=== PATIENT | female | born 1945 | race Asian ===

== ENCOUNTER 2018-09-10 20:38 | Inpatient (IN) | payer MEDICARE ==
--- NOTE | 2018-09-10 21:06 | Emergency Department Report ---
HPI - General Time Seen by Provider: 09/10/18 20:47 - HPI HPI: Room 6 The patient is a 73-year-old female presenting with a chief complaint chest pain. History is obtained via translation by family member. Since 14:00 today the patient has had substernal chest pain described as a constant sharpness. Patient admits to shortness of breath and diaphoresis but denies nausea or vomiting. Patient is to call for past 3 days but states he's been nonproductive. Patient admits to subjective fever. Patient states she's never had a stress test or cardiac catheterization Location: Chest Duration: [See above] Quality: Sharp Severity: Currently 0/10 Modifying factors: [see above] Context: [see above] Mode of transportation: [not driving] ED Past Medical Hx - Past Medical History Hx Congestive Heart Failure: No - Surgical History Past Surgical History?: No - Family History Family history: no significant - Social History Smoking Status: Never Smoker Substance Use Type: None - Medications Home Medications: Home Medications Medication Instructions Recorded Confirmed Last Taken Type No Known Home Medications [No 01/17/13 01/17/13 Unknown History Reported Home Medications] ED Review of Systems ROS: Stated complaint: JUSTEN/CHEST PAIN Other details as noted in HPI Constitutional: diaphoresis, fever (subjective) Eyes: denies: eye pain ENT: denies: throat pain Respiratory: shortness of breath Cardiovascular: chest pain Endocrine: no symptoms reported Gastrointestinal: denies: nausea, vomiting Genitourinary: denies: dysuria Musculoskeletal: denies: back pain Neurological: denies: headache Physical Exam - Physical Exam Physical Exam: GENERAL: The patient is well-developed well-nourished female lying on stretcher not appearing to be in acute distress. [] HEENT: Normocephalic. Atraumatic. Extraocular motions are intact. Patient has moist mucous membranes. NECK: Supple. Trachea midline CHEST/LUNGS: Clear to auscultation. There is no respiratory distress noted. HEART/CARDIOVASCULAR: Regular. There is no tachycardia. There is no gallop rub or murmur. ABDOMEN: Abdomen is soft, nontender. Patient has normal bowel sounds. There is no abdominal distention. SKIN: There is no rash. There is no edema. There is no diaphoresis. NEURO: The patient is awake, alert, and oriented. The patient is cooperative. The patient has normal speech MUSCULOSKELETAL: There is no evidence of acute injury. ED Medical Decision Making - Lab Data Result diagrams: 09/10/18 21:09 09/10/18 21:09 Laboratory Tests 09/10/18 09/10/18 09/10/18 21:09 21:09 21:09 WBC 9.9 RBC 4.61 Hgb 11.7 Hct 34.6 MCV 75 L MCH 25 L MCHC 34 RDW 14.5 Plt Count 228 Seg Neutrophils % [employer] PT 12.2 INR 0.93 APTT 24.3 Sodium 135 L Potassium 3.8 Chloride 99.5 Carbon Dioxide 21 L Anion Gap 18 BUN 10 Creatinine 0.7 Estimated GFR > 60 BUN/Creatinine Ratio 14 Glucose 120 H Calcium 9.0 Total Creatine Kinase 34 Troponin T < 0.010 NT-Pro-B Natriuret Pep 289.7 - Radiology Data Radiology results: image reviewed (chest x-ray) interpreted by me: Chest x-ray-no focal infiltrates, no pneumothorax - Differential Diagnosis ACS, pneumonia, pericarditis, GERD Critical care attestation.: If time is entered above; I have spent that time in minutes in the direct care of this critically ill patient, excluding procedure time. ED Disposition Clinical Impression: Chest pain Disposition: DC-09 OP ADMIT IP TO THIS HOSP Is pt being admited?: Yes Does the pt Need Aspirin: Yes Condition: Fair Instructions: Chest Pain (ED) Time of Disposition: 21:46 (hospitalist paged (Dr Rothman))
[2018-09-10 21:23] LABS: Hematocrit 34.6 % (30.3-42.9); Hemoglobin 11.7 gm/dl (10.1-14.3); Mean Corpuscular HGB Conc 34 % (30-34); Mean Corpuscular Volume 75 fl (79-97); Platelet Count 228 K/mm3 (140-440); Red Blood Count 4.61 M/mm3 (3.65-5.03); Red Cell Distribution Width 14.5 % (13.2-15.2)
[2018-09-10 21:32] LABS: INR 0.93 (0.87-1.13); Partial Thromboplastin Time 24.3 Sec. (24.2-36.6)
[2018-09-10 21:42] LABS: BUN/Creatinine Ratio 14; Blood Urea Nitrogen 10 mg/dL (7-17); Hemolysis Index 17
[2018-09-10 21:46] LABS: Creatine Kinase MB < 1.0 ng/mL (0.0-4.0)
[2018-09-10] MEDS ORDERED: ASPIRIN PO ONE (21:48)
[2018-09-10 21:55] LABS: Basophils % (Manual) 0 % (0.0-1.8); Eosinophils % (Manual) 0 % (0.0-4.3); Total Cells Counted 100
[2018-09-10 21:56] LABS: Anisocytosis Few; Poikilocytosis Few; Target Cells Few
--- NOTE | 2018-09-10 22:15 | XRay Report ---
PROCEDURE: XR CHEST 1V AP TECHNIQUE: Chest radiograph single view. HISTORY: chest pain COMPARISONS: None . FINDINGS: Heart: Mild cardiomegaly. Mediastinum/Vessels: Normal. Lungs/Pleural space: Lungs are hyperinflated. There are no confluent infiltrates or mass lesions. Pl eural spaces are clear.. Bony thorax: No acute osseous abnormality. Life support devices: None. IMPRESSION: COPD No acute pulmonary process Mild cardiomegaly. This document is electronically signed by Mohinder Maldonado MD., September 10 2018 10:13:51 PM ET
[2018-09-10] MEDS ORDERED: ZOFRAN IV PRN (22:25)
[2018-09-10] MEDS ORDERED: MORPHINE IV PRN (22:25)
[2018-09-10] MEDS ORDERED: SODIUM CHLORIDE FLUSH SYRINGE 10 ML IV PRN (22:25)
[2018-09-10] MEDS ORDERED: TYLENOL PO PRN (22:25)
[2018-09-10] MEDS ORDERED: PERCOCET 5/325 PO PRN (22:25)
--- NOTE | 2018-09-10 22:56 | History and Physical Report ---
History of Present Illness Date of examination: 09/10/18 Date of admission: 09/10/18 22:25 Chief complaint: Chest pain History of present illness: Patient is a 73-year-old female with no known past medical history who presented to the ED on account of few hours history of left-sided chest pain which started about 2:30 PM. Of note, patient speaks little [place] so history was obtained from both the patient and the son who was at the bedside. She described it as sharp in character, rated 10 over 10, nonradiating and constant in duration. Pain is worse with deep breaths but no known relieving factors. She has associated palpitations, diaphoresis, fever with chills, dry cough, headaches and lightheadedness. She denies shortness of breath, leg swelling, orthopnea, PND, nausea, vomiting, syncope or loss of consciousness. No reported prior history of stress test. Past History Past Medical History: No medical history Past Surgical History: No surgical history Social history: no significant social history (she denies tobacco, alcohol or illicit drug use) Family history: other (no known family history of hypertension, diabetes or he art disease) Medications and Allergies Allergies Allergy/AdvReac Type Severity Reaction Status Date / Time No Known Allergies Allergy Unverified 01/17/13 17:48 Home Medications Medication Instructions Recorded Confirmed Last Taken Type No Known Home Medications [No 01/17/13 09/10/18 Unknown History Reported Home Medications] Active Meds: Active Medications Acetaminophen (Tylenol) 650 mg PO Q4H PRN PRN Reason: Pain MILD(1-3)/Fever >100.5/COSTA Aspirin (Baby Aspirin) 81 mg PO QDAY VALERIE Famotidine (Pepcid) 10 mg PO BID VALERIE Heparin Sodium (Porcine) (Heparin) 5,000 unit SUB-Q Q12HR [facility] Sodium Chloride (Nacl 0.9% 1000 Ml) 1,000 mls @ 100 mls/hr IV DIRECT VALERIE Morphine Sulfate (Morphine) 2 mg IV Q4H PRN PRN Reason: Pain , Severe (7-10) Ondansetron HCl (Zofran) 4 mg IV Q8H PRN PRN Reason: Nausea And Vomiting Oxycodone/Acetaminophen (Percocet 5/325) 1 tab PO Q6H PRN PRN Reason: Pain, Moderate (4-6) Sodium Chloride (Sodium Chloride Flush Syringe 10 Ml) 10 ml IV BID VALERIE Sodium Chloride (Sodium Chloride Flush Syringe 10 Ml) 10 ml IV PRN PRN PRN Reason: LINE FLUSH Review of Systems All systems: negative (except as documented in the HPI, 14 point system reviewed were negative) Exam - Constitutional Vitals: Temp Pulse Resp BP Pulse Ox 97.9 F 57 L 13 144/80 97 09/10/18 21:11 09/10/18 21:11 09/10/18 21:11 09/10/18 21:11 09/10/18 21:11 General appearance: Present: no acute distress - EENT Eyes: Present: PERRL, EOM intact ENT: hearing intact, clear oral mucosa - Neck Neck: Present: supple, normal ROM - Respiratory Respiratory effort: normal Respiratory: bilateral: CTA - Cardiovascular Rhythm: regular Heart Sounds: Present: S1 & S2. Absent: rub, click - Extremities Extremities: pulses symmetrical, No edema Peripheral Pulses: within normal limits - Abdominal General gastrointestinal: Present: soft, non-tender, non-distended, normal bowel sounds Female genitourinary: Present: deferred - Integumentary Integumentary: Present: clear, warm, dry - Musculoskeletal Musculoskeletal: gait normal, strength equal bilaterally - Psychiatric Psychiatric: appropriate mood/affect, intact judgment & insight - Neurologic Neurologic: CNII-XII intact, moves all extremities Results - Labs CBC & Chem 7: 09/10/18 21:09 09/10/18 21:09 Labs: Laboratory Last Values WBC 9.9 K/mm3 (4.5-11.0) 09/10/18 21: RBC 4.61 M/mm3 (3.65-5.03) 09/10/18 21:09 Hgb 11.7 gm/dl (10.1-14.3) 09/10/18 21: Hct 34.6 % (30.3-42.9) 09/10/18 21:09 MCV 75 fl (79-97) L 09/10/18 21:09 MCH 25 pg (28-32) L 09/10/18 21:09 MCHC 34 % (30-34) 09/10/18 21: RDW 14.5 % (13.2-15.2) 09/10/18 21:09 Plt Count 228 K/mm3 (140-440) 09/10/18 21:09 Add Manual Diff Complete 09/10/18 21:09 Total Counted 100 09/10/18 21:09 Seg Neutrophils % Remedy Developer 09/10/18 21:09 Seg Neuts % (Manual) 89.0 % (40.0-70.0) H 09/10/18 21:09 0 % 09/10/18 21:09 6.0 % (13.4-35.0) L 09/10/18 21:09 Reactive Lymphs % (Man) 0 % 09/10/18 21:09 5.0 % (0.0-7.3) 09/10/18 21:09 0 % (0.0-4.3) 09/10/18 21:09 0 % (0.0-1.8) 09/10/18 21:09 0 % 09/10/18 21:09 0 % 09/10/18 21:09 0 % 09/10/18 21:09 0 % 09/10/18 21:09 Nucleated RBC % Not Reportable 09/10/18 21:09 Seg Neutrophils # Man 8.8 K/mm3 (1.8-7.7) H 09/10/18 21:09 Band Neutrophils # 0.0 K/mm3 09/10/18 21:09 0.6 K/mm3 (1.2-5.4) L 09/10/18 21:09 Abs React Lymphs (Man) 0.0 K/mm3 09/10/18 21:09 0.5 K/mm3 (0.0-0.8) 09/10/18 21:09 0.0 K/mm3 (0.0-0.4) 09/10/18 21:09 0.0 K/mm3 (0.0-0.1) 09/10/18 21:09 0.0 K/mm3 09/10/18 21:09 0.0 K/mm3 09/10/18 21:09 0.0 K/mm3 09/10/18 21:09 Blast Cells # 0.0 K/mm3 09/10/18 21:09 WBC Morphology Not Reportable 09/10/18 21:09 Hypersegmented Neuts Not Reportable 09/10/18 21:09 Hyposegmented Neuts Not Reportable 09/10/18 21:09 Hypogranular Neuts Not Reportable 09/10/18 21:09 Not Reportable 09/10/18 21:09 Not Reportable 09/10/18 21:09 Not Reportable 09/10/18 21:09 Not Reportable 09/10/18 21:09 Not Reportable 09/10/18 21:09 Not Reportable 09/10/18 21:09 Appears normal 09/10/18 21:09 Not Reportable 09/10/18 21:09 Plt Clumps, EDTA Not Reportable 09/10/18 21:09 Not Reportable 09/10/18 21:09 Not Reportable 09/10/18 21:09 Not Reportable 09/10/18 21:09 Plt Morphology Comment Not Reportable 09/10/18 21:09 RBC Morphology Not Reportable 09/10/18 21:09 Dimorphic RBCs Not Reportable 09/10/18 21:09 Not Reportable 09/10/18 21:09 Not Reportable 09/10/18 21:09 Few 09/10/18 21:09 Few 09/10/18 21:09 Not Reportable 09/10/18 21:09 Not Reportable 09/10/18 21:09 Not Reportable 09/10/18 21:09 Not Reportable 09/10/18 21:09 Not Reportable 09/10/18 21:09 Few 09/10/18 21:09 Not Reportable 09/10/18 21:09 Not Reportable 09/10/18 21:09 Not Reportable 09/10/18 21:09 Not Reportable 09/10/18 21:09 Not Reportable 09/10/18 21:09 Not Reportable 09/10/18 21:09 Not Reportable 09/10/18 21:09 Not Reportable 09/10/18 21:09 Few 09/10/18 21:09 Acanthocytes (Spur) Not Reportable 09/10/18 21:09 Rouleaux Not Reportable 09/10/18 21:09 Not Reportable 09/10/18 21:09 Not Reportable 09/10/18 21:09 Not Reportable 09/10/18 21:09 Not Reportable 09/10/18 21:09 Hem Pathologist Commnt No 09/10/18 21:09 PT 12.2 Sec. (12.2-14.9) 09/10/18 21:09 INR 0.93 (0.87-1.13) 09/10/18 21:09 APTT 24.3 Sec. (24.2-36.6) 09/10/18 21:09 Sodium 135 mmol/L (137-145) L 09/10/18 21:09 Potassium 3.8 mmol/L (3.6-5.0) 09/10/18 21:09 Chloride 99.5 mmol/L (98-107) 09/10/18 21:09 Carbon Dioxide 21 mmol/L (22-30) L 09/10/18 21:09 18 mmol/L 09/10/18 21:09 BUN 10 mg/dL (7-17) 09/10/18 21:09 0.7 mg/dL (0.7-1.2) 09/10/18 21:09 Estimated GFR > 60 ml/min 09/10/18 21:09 14 % 09/10/18 21:09 Glucose 120 mg/dL (65-100) H 09/10/18 21:09 Calcium 9.0 mg/dL (8.4-10.2) 09/10/18 21:09 34 units/L (30-135) 09/10/18 21:09 CK-MB (CK-2) < 1.0 ng/mL (0.0-4.0) 09/10/18 21:09 CK-MB (CK-2) Rel Index 2.9 (0-4) 09/10/18 21:09 < 0.010 ng/mL (0.00-0.029) 09/10/18 21:09 NT-Pro-B Natriuret Pep 289.7 pg/mL (0-900) 09/10/18 21:09 Assessment and Plan Assessment and plan: Chest pain, rule out ACS -On chest pain pathway -We will check d-dimer -Further evaluation with stress test in a.m. Sinus bradycardia -We'll check TSH and FT4 -gambling monitor Metabolic acidosis -On IV fluid, will monitor bicarbonate level DVT prophylaxis with heparin Disposition: Patient will be placed in observation status pending further evaluation and treatment Time spent: 35 minutes
[2018-09-10] MEDS ORDERED: PEPCID PO SCH (23:00)
[2018-09-10] MEDS ORDERED: NACL 0.9% 1000 ML 1,000 ML ONE (23:15)
[2018-09-10] MEDS: NACL 0.9% 1000 ML 1,000 ML IV SCH (23:17)
[2018-09-11] MEDS: PEPCID PO SCH ×3 (00:26→22:12)
[2018-09-11 06:44] LABS: BUN/Creatinine Ratio 15; Blood Urea Nitrogen 9 mg/dL (7-17); Calcium 8.6 mg/dL (8.4-10.2); Hemolysis Index 8; LDL Cholesterol,Direct 93 mg/dL (50-130)
[2018-09-11 07:10] LABS: Chol/HDL Ratio 3.35 %; HDL Cholesterol 42 mg/dL (40-59)
[2018-09-11] MEDS ORDERED: LEXISCAN IV ONE ×2 (08:09→08:16)
[2018-09-11] MEDS: HEPARIN SUB-Q SCH ×2 (12:03→22:12)
[2018-09-11] MEDS: BABY ASPIRIN PO SCH (12:06)
[2018-09-11] MEDS: SODIUM CHLORIDE FLUSH SYRINGE 10 ML IV SCH ×2 (12:07→22:13)
--- NOTE | 2018-09-11 16:19 | Progress Note ---
Assessment and Plan Assessment and plan: --Chest pain: Probably noncardiac chest pain Stress test negative for reversible ischemia Continue some abortive care, possible gastroesophageal reflux disease --GERD; causing chest pain next symptoms, Protonix --Elevated d-dimer's; the setting of chest pain, rule out PE CT angiogram of the chest, lower extremity venous Doppler if needed --Sinus bradycardia at the time of admission; now resolved Patient's heart rate ranges in 50s and 60s, no symptoms Patient will follow cardiology upon discharge, thyroid function tests normal range --Metabolic acidosis; corrected --DVT prophylaxis with heparin --Full Code Follow CTA chest, lower extremity venous Doppler, if negative And patient is stable .may be discharged home tomorrow Plan of care is reviewed with the patient and family through a Bilingual family member History Interval history: Patient seen and examined, medical records reviewed No chest pain or shortness of breath Stress test negative for reversible ischemia However d-dimer slightly elevated Evaluate for PE and DVT Vital signs noted Hospitalist Physical - Constitutional Vitals: Temp Pulse Resp BP Pulse Ox 98.6 F 73 16 141/79 96 09/11/18 04:00 09/11/18 04:00 09/11/18 04:00 09/11/18 09:38 09/11/18 04:00 General appearance: Present: no acute distress, cachectic - EENT Eyes: Present: PERRL, EOM intact - Neck Neck: Present: supple, normal ROM - Respiratory Respiratory effort: normal Respiratory: bilateral: diminished, negative: rales, rhonchi, wheezing - Cardiovascular Rhythm: regular Heart Sounds: Present: S1 & S2 - Extremities Extremities: no ischemia, No edema - Abdominal General gastrointestinal: soft, non-tender, non-distended, normal bowel sounds - Integumentary Integumentary: Present: clear, warm - Psychiatric Psychiatric: appropriate mood/affect, cooperative - Neurologic Neurologic: moves all extremities Results - Labs CBC & Chem 7: 09/10/18 21:09 09/11/18 05:20 Labs: Laboratory Last Values WBC 9.9 K/mm3 (4.5-11.0) 09/10/18 21:09 RBC 4.61 M/mm3 (3.65-5.03) 09/10/18 21:09 Hgb 11.7 gm/dl (10.1-14.3) 09/10/18 21:09 Hct 34.6 % (30.3-42.9) 09/10/18 21:09 MCV 75 fl (79-97) L 09/10/18 21:09 MCH 25 pg (28-32) L 09/10/18 21:09 MCHC 34 % (30-34) 09/10/18 21:09 RDW 14.5 % (13.2-15.2) 09/10/18 21:09 Plt Count 228 K/mm3 (140-440) 09/10/18 21:09 Add Manual Diff Complete 09/10/18 21: Total Counted 100 09/10/18 21:09 Seg Neutrophils % Condenser Winder 09/10/18 21: Seg Neuts % (Manual) 89.0 % (40.0-70.0) H 09/10/18 21:09 0 % 09/10/18 21:09 6.0 % (13.4-35.0) L 09/10/18 21:09 Reactive Lymphs % (Man) 0 % 09/10/18 21:09 5.0 % (0.0-7.3) 09/10/18 21:09 0 % (0.0-4.3) 09/10/18 21:09 0 % (0.0-1.8) 09/10/18 21:09 0 % 09/10/18 21:09 0 % 09/10/18 21:09 0 % 09/10/18 21:09 0 % 09/10/18 21:09 Nucleated RBC % Not Reportable 09/10/18 21:09 Seg Neutrophils # Man 8.8 K/mm3 (1.8-7.7) H 09/10/18 21:09 Band Neutrophils # 0.0 K/mm3 09/10/18 21:09 0.6 K/mm3 (1.2-5.4) L 09/10/18 21:09 Abs React Lymphs (Man) 0.0 K/mm3 09/10/18 21:09 0.5 K/mm3 (0.0-0.8) 09/10/18 21:09 0.0 K/mm3 (0.0-0.4) 09/10/18 21:09 0.0 K/mm3 (0.0-0.1) 09/10/18 21:09 0.0 K/mm3 09/10/18 21:09 0.0 K/mm3 09/10/18 21:09 0.0 K/mm3 09/10/18 21:09 Blast Cells # 0.0 K/mm3 09/10/18 21:09 WBC Morphology Not Reportable 09/10/18 21:09 Hypersegmented Neuts Not Reportable 09/10/18 21:09 Hyposegmented Neuts Not Reportable 09/10/18 21:09 Hypogranular Neuts Not Reportable 09/10/18 21:09 Not Reportable 09/10/18 21:09 Not Reportable 09/10/18 21:09 Not Reportable 09/10/18 21:09 Not Reportable 09/10/18 21:09 Not Reportable 09/10/18 21:09 Not Reportable 09/10/18 21:09 Appears normal 09/10/18 21:09 Not Reportable 09/10/18 21:09 Plt Clumps, EDTA Not Reportable 09/10/18 21:09 Not Reportable 09/10/18 21:09 Not Reportable 09/10/18 21:09 Not Reportable 09/10/18 21:09 Plt Morphology Comment Not Reportable 09/10/18 21:09 RBC Morphology Not Reportable 09/10/18 21:09 Dimorphic RBCs Not Reportable 09/10/18 21:09 Not Reportable 09/10/18 21:09 Not Reportable 09/10/18 21:09 Few 09/10/18 21:09 Few 09/10/18 21:09 Not Reportable 09/10/18 21:09 Not Reportable 09/10/18 21:09 Not Reportable 09/10/18 21:09 Not Reportable 09/10/18 21:09 Not Reportable 09/10/18 21:09 Few 09/10/18 21:09 Not Reportable 09/10/18 21:09 Not Reportable 09/10/18 21:09 Not Reportable 09/10/18 21:09 Not Reportable 09/10/18 21:09 Not Reportable 09/10/18 21:09 Not Reportable 09/10/18 21:09 Not Reportable 09/10/18 21:09 Not Reportable 09/10/18 21:09 Few 09/10/18 21:09 Acanthocytes (Spur) Not Reportable 09/10/18 21:09 Rouleaux Not Reportable 09/10/18 21:09 Not Reportable 09/10/18 21:09 Not Reportable 09/10/18 21:09 Not Reportable 09/10/18 21:09 Not Reportable 09/10/18 21:09 Hem Pathologist Commnt No 09/10/18 21:09 PT 12.2 Sec. (12.2-14.9) 09/10/18 21:09 INR 0.93 (0.87-1.13) 09/10/18 21:09 APTT 24.3 Sec. (24.2-36.6) 09/10/18 21:09 296.99 ng/mlDDU (0-234) H 09/10/18 23:03 Sodium 137 mmol/L (137-145) 09/11/18 05:20 Potassium 4.0 mmol/L (3.6-5.0) 09/11/18 05:20 Chloride 101.6 mmol/L (98-107) 09/11/18 05:20 Carbon Dioxide 22 mmol/L (22-30) 09/11/18 05:20 17 mmol/L 09/11/18 05:20 BUN 9 mg/dL (7-17) 09/11/18 05:20 0.6 mg/dL (0.7-1.2) L 09/11/18 05:20 Estimated GFR > 60 ml/min 09/11/18 05:20 15 % 09/11/18 05:20 Glucose 94 mg/dL (65-100) 09/11/18 05:20 Calcium 8.6 mg/dL (8.4-10.2) 09/11/18 05:20 Magnesium 2.00 mg/dL (1.7-2.3) 09/11/18 05:20 34 units/L (30-135) 09/10/18 21:09 CK-MB (CK-2) < 1.0 ng/mL (0.0-4.0) 09/10/18 21:09 CK-MB (CK-2) Rel Index 2.9 (0-4) 09/10/18 21:09 < 0.010 ng/mL (0.00-0.029) 09/11/18 05:20 NT-Pro-B Natriuret Pep 289.7 pg/mL (0-900) 09/10/18 21:09 Triglycerides 92 mg/dL (2-149) 09/11/18 05:20 Cholesterol 141 mg/dL (50-199) 09/11/18 05:20 93 mg/dL (50-130) 09/11/18 05:20 42 mg/dL (40-59) 09/11/18 05:20 3.35 % 09/11/18 05:20 TSH 0.387 mlU/mL (0.270-4.200) 09/11/18 05:20 Free T4 1.38 ng/dL (0.76-1.46) 09/11/18 05:20 Active Medications - Current Medications Current Medications: Generic Name Dose Route Start Last Admin Trade Name Freq PRN Reason Stop Dose Admin Acetaminophen 650 mg 09/10/18 22:25 Tylenol PO Q4H PRN Pain MILD(1-3)/Fever >100.5/COSTA Aspirin 81 mg 09/11/18 10:00 09/11/18 12:06 Baby Aspirin PO 81 mg QDAY VALERIE Administration Famotidine 10 mg 09/10/18 23:00 09/11/18 12:02 Pepcid PO 10 mg BID VALERIE Administration Guaifenesin 10 ml 09/10/18 23:33 Guaifenesin Dm Syrup PO Q4H PRN Cough Heparin Sodium (Porcine) 5,000 unit 09/11/18 10:00 09/11/18 12:03 Heparin SUB-Q 5,000 unit Q12HR VALERIE Administration Sodium Chloride 1,000 mls @ 100 mls/hr 09/10/18 23:00 09/10/18 23:17 Nacl 0.9% 1000 Ml IV 100 mls/hr DIRECT VALERIE Administration Morphine Sulfate 2 mg 09/10/18 22:25 Morphine IV Q4H PRN Pain , Severe (7-10) Ondansetron HCl 4 mg 09/10/18 22:25 Zofran IV Q8H PRN Nausea And Vomiting Oxycodone/Acetaminophen 1 tab 09/10/18 22:25 Percocet 5/325 PO Q6H PRN Pain, Moderate (4-6) Sodium Chloride 10 ml 09/11/18 10:00 09/11/18 12:07 Sodium Chloride Flush Syringe 10 Ml IV 10 ml BID VALERIE Administration Sodium Chloride 10 ml 09/10/18 22:25 Sodium Chloride Flush Syringe 10 Ml IV PRN PRN LINE FLUSH
[2018-09-11] MEDS: NACL 0.9% 1000 ML 1,000 ML IV SCH (17:39)
[2018-09-11] MEDS ORDERED: MELATONIN PO PRN (21:54)
--- NOTE | 2018-09-11 22:41 | Treadmill Report ---
INDICATION: Chest pain. ORDERING PHYSICIAN: Dr. Welsh FINDINGS: This is a fair quality myocardial perfusion scan limited by motion artifact as well as by the patient having her bilateral arm by her side during stress imaging. There is no definite evidence of scintigraphic ischemia. The left ventricle is normal in size. The left ventricular ejection fraction is measured at 80%. There is normal wall motion and wall thickening on gated imaging. CONCLUSION: 1. Fair quality myocardial perfusion scan. 2. No scintigraphic evidence of myocardial ischemia. 3. Normal left ventricular size and systolic function with an ejection fraction measured at 80%. JOB# [id number] ELENA/EVARISTO
--- NOTE | 2018-09-12 00:33 | Cat Scan Report ---
PROCEDURE: CT ANGIO CHEST TECHNIQUE: Computerized tomographic angiography of the chest was performed after the IV injection of iodinated nonionic contrast including image processing. The image data was postprocessed using 2-di mensional multiplanar reformatted (MPR) and 3-dimensional (MIP and/or volume rendered) techniques. Au tomated exposure control, adjustment of mA and/or kV according to patient size, or iterative reconstr uction dose optimization techniques were utilized. CT DOSE LENGTH PRODUCT: 617.3 mGycm HISTORY: chest pain/elevated d dimers/r/o PE COMPARISONS: None . FINDINGS: Heart and pericardium: The heart size is slightly pronounced. Thoracic aorta: There is an ascending aortic aneurysm measuring 4.9 cm. Moderate atherosclerosis of aorta is identified. The aorta is tortuous.. Pulmonary vasculature: There is no evidence of pulmonary arterial emboli. Lymph nodes: No enlarged thoracic lymph nodes. Lungs: Chronic obstructive pulmonary changes with mild fibrosis. Slight atelectasis both lower lungs .. Pleural space: No effusion, thickening, or pneumothorax. Musculoskeletal structures: No significant abnormality. Upper abdominal structures: No significant abnormality. IMPRESSION: There is no evidence of pulmonary arterial emboli. COPD with mild fibrosis is slight atelectasis bilateral lower lungs. There is an ascending aortic aneurysm measuring 4.9 cm. The aorta is tortuous. No dissection is seen. . This document is electronically signed by Hali Maguire DO., September 12 2018 12:31:18 AM ET
[2018-09-12] MEDS: NACL 0.9% 1000 ML 1,000 ML IV SCH (08:57)
--- NOTE | 2018-09-12 09:56 | Progress Note ---
Assessment and Plan Assessment and plan: --Ascending aortic aneurysm 4.9 cm ; on CT angiogram of the chest No dissection, tortuous aorta Discussed with electrician office , requested consult Patient may need to see CT surgeon for further evaluation and management Cardiology plans cardiac cath tomorrow, nothing by mouth midnight --Chest pain: Stress test negative for reversible ischemia Continue supportive care, --GERD;Pepcid --Elevated d-dimer's; the setting of chest pain, rule out PE CT angiogram of the chest; negative for PE, ascending aortic aneurysm 4.9 cm Cardiology consulted lower extremity venous Doppler negative for DVT --Sinus bradycardia at the time of admission; now resolved Patient's heart rate ranges in 50s and 60s, no symptoms Patient will follow cardiology upon discharge, thyroid function tests normal range --Metabolic acidosis; corrected --DVT prophylaxis with heparin --Full Code Follow cardiology evaluation and recommendations Plan of care is reviewed with Mauritian speaking Son Mr. Wilkerson History Interval history: Patient seen and examined medical records reviewed Patient feels better denies chest pain or shortness of breath Alert awake oriented, cachectic and malnourished CT angiogram of the chest findings negative for PE Ascending aortic aneurysm of 4.9 cm, without dissection, tortuous aorta Vital signs noted Hospitalist Physical - Constitutional Vitals: Temp Pulse Resp BP Pulse Ox 97.4 F L 54 L 16 146/89 98 09/12/18 05:01 09/12/18 05:01 09/12/18 05:01 09/12/18 05:01 09/12/18 05:01 General appearance: Present: no acute distress, cachectic, disheveled - EENT Eyes: Present: PERRL, EOM intact - Neck Neck: Present: supple, normal ROM - Respiratory Respiratory effort: normal Respiratory: bilateral: diminished, negative: rales, rhonchi, wheezing - Cardiovascular Rhythm: regular Heart Sounds: Present: S1 & S2 - Extremities Extremities: no ischemia, No edema - Abdominal General gastrointestinal: soft, non-tender, non-distended, normal bowel sounds - Integumentary Integumentary: Present: clear, warm - Psychiatric Psychiatric: appropriate mood/affect, cooperative - Neurologic Neurologic: CNII-XII intact, moves all extremities Results - Labs CBC & Chem 7: 09/13/18 07:38 09/13/18 07:38 Labs: Laboratory Last Values WBC 9.9 K/mm3 (4.5-11.0) 09/10/18 21:09 RBC 4.61 M/mm3 (3.65-5.03) 09/10/18 21:09 Hgb 11.7 gm/dl (10.1-14.3) 09/10/18 21:09 Hct 34.6 % (30.3-42.9) 09/10/18 21:09 MCV 75 fl (79-97) L 09/10/18 21:09 MCH 25 pg (28-32) L 09/10/18 21:09 MCHC 34 % (30-34) 09/10/18 21: RDW 14.5 % (13.2-15.2) 09/10/18 21: Plt Count 228 K/mm3 (140-440) 09/10/18 21:09 Add Manual Diff Complete 09/10/18 21: Total Counted 100 09/10/18 21: Seg Neutrophils % Senior Program Manager 09/10/18 21: Seg Neuts % (Manual) 89.0 % (40.0-70.0) H 09/10/18 21:09 0 % 09/10/18 21:09 6.0 % (13.4-35.0) L 09/10/18 21:09 Reactive Lymphs % (Man) 0 % 09/10/18 21:09 5.0 % (0.0-7.3) 09/10/18 21:09 0 % (0.0-4.3) 09/10/18 21:09 0 % (0.0-1.8) 09/10/18 21:09 0 % 09/10/18 21:09 0 % 09/10/18 21:09 0 % 09/10/18 21:09 0 % 09/10/18 21:09 Nucleated RBC % Not Reportable 09/10/18 21: Seg Neutrophils # Man 8.8 K/mm3 (1.8-7.7) H 09/10/18 21:09 Band Neutrophils # 0.0 K/mm3 09/10/18 21:09 0.6 K/mm3 (1.2-5.4) L 09/10/18 21:09 Abs React Lymphs (Man) 0.0 K/mm3 09/10/18 21:09 0.5 K/mm3 (0.0-0.8) 09/10/18 21:09 0.0 K/mm3 (0.0-0.4) 09/10/18 21:09 0.0 K/mm3 (0.0-0.1) 09/10/18 21:09 0.0 K/mm3 09/10/18 21:09 0.0 K/mm3 09/10/18 21:09 0.0 K/mm3 09/10/18 21:09 Blast Cells # 0.0 K/mm3 09/10/18 21:09 WBC Morphology Not Reportable 09/10/18 21:09 Hypersegmented Neuts Not Reportable 09/10/18 21:09 Hyposegmented Neuts Not Reportable 09/10/18 21:09 Hypogranular Neuts Not Reportable 09/10/18 21:09 Not Reportable 09/10/18 21:09 Not Reportable 09/10/18 21:09 Not Reportable 09/10/18 21:09 Not Reportable 09/10/18 21:09 Not Reportable 09/10/18 21:09 Not Reportable 09/10/18 21:09 Appears normal 09/10/18 21:09 Not Reportable 09/10/18 21:09 Plt Clumps, EDTA Not Reportable 09/10/18 21:09 Not Reportable 09/10/18 21:09 Not Reportable 09/10/18 21:09 Not Reportable 09/10/18 21:09 Plt Morphology Comment Not Reportable 09/10/18 21:09 RBC Morphology Not Reportable 09/10/18 21:09 Dimorphic RBCs Not Reportable 09/10/18 21:09 Not Reportable 09/10/18 21:09 Not Reportable 09/10/18 21:09 Few 09/10/18 21:09 Few 09/10/18 21:09 Not Reportable 09/10/18 21:09 Not Reportable 09/10/18 21:09 Not Reportable 09/10/18 21:09 Not Reportable 09/10/18 21:09 Not Reportable 09/10/18 21:09 Few 09/10/18 21:09 Not Reportable 09/10/18 21:09 Not Reportable 09/10/18 21:09 Not Reportable 09/10/18 21:09 Not Reportable 09/10/18 21:09 Not Reportable 09/10/18 21:09 Not Reportable 09/10/18 21:09 Not Reportable 09/10/18 21:09 Not Reportable 09/10/18 21:09 Few 09/10/18 21:09 Acanthocytes (Spur) Not Reportable 09/10/18 21:09 Rouleaux Not Reportable 09/10/18 21:09 Not Reportable 09/10/18 21:09 Not Reportable 09/10/18 21:09 Not Reportable 09/10/18 21:09 Not Reportable 09/10/18 21:09 Hem Pathologist Commnt No 09/10/18 21:09 PT 12.2 Sec. (12.2-14.9) 09/10/18 21:09 INR 0.93 (0.87-1.13) 09/10/18 21:09 APTT 24.3 Sec. (24.2-36.6) 09/10/18 21:09 296.99 ng/mlDDU (0-234) H 09/10/18 23:03 Sodium 137 mmol/L (137-145) 09/11/18 05:20 Potassium 4.0 mmol/L (3.6-5.0) 09/11/18 05:20 Chloride 101.6 mmol/L (98-107) 09/11/18 05:20 Carbon Dioxide 22 mmol/L (22-30) 09/11/18 05:20 17 mmol/L 09/11/18 05:20 BUN 9 mg/dL (7-17) 09/11/18 05:20 0.6 mg/dL (0.7-1.2) L 09/11/18 05:20 Estimated GFR > 60 ml/min 09/11/18 05:20 15 % 09/11/18 05:20 Glucose 94 mg/dL (65-100) 09/11/18 05:20 Calcium 8.6 mg/dL (8.4-10.2) 09/11/18 05:20 Magnesium 2.00 mg/dL (1.7-2.3) 09/11/18 05:20 34 units/L (30-135) 09/10/18 21:09 CK-MB (CK-2) < 1.0 ng/mL (0.0-4.0) 09/10/18 21:09 CK-MB (CK-2) Rel Index 2.9 (0-4) 09/10/18 21:09 < 0.010 ng/mL (0.00-0.029) 09/11/18 05:20 NT-Pro-B Natriuret Pep 289.7 pg/mL (0-900) 09/10/18 21:09 Triglycerides 92 mg/dL (2-149) 09/11/18 05:20 Cholesterol 141 mg/dL (50-199) 09/11/18 05:20 93 mg/dL (50-130) 09/11/18 05:20 42 mg/dL (40-59) 09/11/18 05:20 3.35 % 09/11/18 05:20 TSH 0.387 mlU/mL (0.270-4.200) 09/11/18 05:20 Free T4 1.38 ng/dL (0.76-1.46) 09/11/18 05:20 Active Medications - Current Medications Current Medications: Generic Name Dose Route Start Last Admin Trade Name Freq PRN Reason Stop Dose Admin Acetaminophen 650 mg 09/10/18 22:25 Tylenol PO Q4H PRN Pain MILD(1-3)/Fever >100.5/COSTA Aspirin 81 mg 09/11/18 10:00 09/11/18 12:06 Baby Aspirin PO 81 mg QDAY VALERIE Administration Famotidine 10 mg 09/10/18 23:00 09/11/18 22:12 Pepcid PO 10 mg BID VALERIE Administration Guaifenesin 10 ml 09/10/18 23:33 Guaifenesin Dm Syrup PO Q4H PRN Cough Heparin Sodium (Porcine) 5,000 unit 09/11/18 10:00 09/11/18 22:12 Heparin SUB-Q 5,000 unit Q12HR VALERIE Administration Sodium Chloride 1,000 mls @ 100 mls/hr 09/10/18 23:00 09/12/18 08:57 Nacl 0.9% 1000 Ml IV 100 mls/hr DIRECT VALERIE Administration Melatonin 5 mg 09/11/18 21:54 09/11/18 22:14 Melatonin PO 5 mg QHS PRN Administration Sleep Morphine Sulfate 2 mg 09/10/18 22:25 Morphine IV Q4H PRN Pain , Severe (7-10) Ondansetron HCl 4 mg 09/10/18 22:25 Zofran IV Q8H PRN Nausea And Vomiting Oxycodone/Acetaminophen 1 tab 09/10/18 22:25 Percocet 5/325 PO Q6H PRN Pain, Moderate (4-6) Sodium Chloride 10 ml 09/11/18 10:00 09/11/18 22:13 Sodium Chloride Flush Syringe 10 Ml IV 10 ml BID VALERIE Administration Sodium Chloride 10 ml 09/10/18 22:25 Sodium Chloride Flush Syringe 10 Ml IV PRN PRN LINE FLUSH
[2018-09-12] MEDS: PEPCID PO SCH ×2 (10:06→22:10)
[2018-09-12] MEDS: BABY ASPIRIN PO SCH (10:06)
[2018-09-12] MEDS: SODIUM CHLORIDE FLUSH SYRINGE 10 ML IV SCH ×2 (10:08→22:11)
[2018-09-12] MEDS: HEPARIN SUB-Q SCH ×2 (10:11→22:10)
--- NOTE | 2018-09-12 10:53 | Event Note ---
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 Will forward CT films to him and arrange for a cardiac cath per his request prior to any surgical intervention Recommendations: Forward CT images to CTS at [place] tomorrow morning Arrange for cardiac cath in am Start amlodipine for blood pressure control Continue to monitor patient in-house Will continue to follow
[2018-09-12] MEDS ORDERED: NACL 0.9% 500 ML 500 ML IV SCH (12:00)
[2018-09-12] MEDS: NORVASC PO SCH (12:05)
--- NOTE | 2018-09-12 13:06 | Vascular Lab Report ---
PROCEDURE: VL VENOUS DUPLEX LE BILAT HISTORY: elevated d dimers/r/o DVT FINDINGS: Real-time ultrasound of the right leg and left leg was performed using grayscale and color Doppler images. These images demonstrate no evidence of deep venous thrombus in the right or left common femoral vein , superficial femoral vein, popliteal vein or posterior tibial vein. IMPRESSION: No DVT in either leg This document is electronically signed by Bahman Ch MD., September 12 2018 01:04:24 PM ET
[2018-09-12 17:00] LABS: INR 0.96 (0.87-1.13)
[2018-09-13 08:15] LABS: Basophils % (Auto) 0.2 % (0.0-1.8); Eosinophils % (Auto) 0.5 % (0.0-4.3); Hematocrit 36.9 % (30.3-42.9); Hemoglobin 12.1 gm/dl (10.1-14.3); Lymphocytes # (Auto) 1.6 K/mm3 (1.2-5.4); Lymphocytes % (Auto) 28.6 % (13.4-35.0); Mean Corpuscular HGB Conc 33 % (30-34); Mean Corpuscular Volume 76 fl (79-97); Monocytes # (Auto) 0.3 K/mm3 (0.0-0.8); Monocytes % (Auto) 6.1 % (0.0-7.3); Platelet Count 225 K/mm3 (140-440); Red Blood Count 4.88 M/mm3 (3.65-5.03); Red Cell Distribution Width 14.8 % (13.2-15.2)
--- NOTE | 2018-09-13 08:21 | Progress Note ---
Assessment and Plan Assessment and plan: --Cardiac cath today per Cardiology --Ascending aortic aneurysm 4.9 cm ; on CT angiogram of the chest No dissection, tortuous aorta Evaluated by budget clerk ,who d/w CT surgeon [place] Patient to be transferred to see CT surgeon for further evaluation and management Cardiology plans cardiac cath today, nothing by mouth midnight --Chest pain: Stress test negative for reversible ischemia normal EF% --GERD;Pepcid --Elevated d-dimer's; the setting of chest pain, rule out PE CTA chest; negative for PE, ascending aortic aneurysm 4.9 cm lower extremity venous Doppler negative for DVT --Sinus bradycardia at the time of admission; now resolved Patient's heart rate ranges in 50s and 60s, no symptoms No beta blockers, thyroid function tests normal range --Metabolic acidosis; corrected --DVT prophylaxis with heparin --Full Code History Interval history: Patient Seen and examined medical records reviewed Patient is scheduled for left heart catheterization today Patient looks chronically and cachectic Denies chest pain or shortness of breath Vital signs noted Family member at the bedside Hospitalist Physical - Constitutional Vitals: Temp Pulse Resp BP Pulse Ox 98.3 F 63 20 145/87 90 09/13/18 04:26 09/13/18 07:13 09/13/18 04:26 09/13/18 07:13 09/13/18 07:13 General appearance: Present: no acute distress, cachectic, disheveled - EENT Eyes: Present: PERRL, EOM intact - Neck Neck: Present: supple, normal ROM - Respiratory Respiratory effort: normal Respiratory: bilateral: diminished, negative: rales, rhonchi, wheezing - Cardiovascular Rhythm: regular Heart Sounds: Present: S1 & S2 - Extremities Extremities: no ischemia, No edema - Abdominal General gastrointestinal: soft, non-tender, non-distended, normal bowel sounds - Integumentary Integumentary: Present: clear, warm - Psychiatric Psychiatric: appropriate mood/affect, other (minimally communicative) - Neurologic Neurologic: moves all extremities Results - Labs CBC & Chem 7: 09/13/18 07:38 09/13/18 07:38 Labs: Laboratory Last Values WBC 9.9 K/mm3 (4.5-11.0) 09/10/18 21:09 RBC 4.61 M/mm3 (3.65-5.03) 09/10/18 21:09 Hgb 11.7 gm/dl (10.1-14.3) 09/10/18 21:09 Hct 34.6 % (30.3-42.9) 09/10/18 21:09 MCV 75 fl (79-97) L 09/10/18 21:09 MCH 25 pg (28-32) L 09/10/18 21:09 MCHC 34 % (30-34) 09/10/18 21:09 RDW 14.5 % (13.2-15.2) 09/10/18 21:09 Plt Count 228 K/mm3 (140-440) 09/10/18 21:09 [place] % (Auto) 6.1 % (0.0-7.3) 09/13/18 07:38 Eos % (Auto) 0.5 % (0.0-4.3) 09/13/18 07:38 [place] # 0.3 K/mm3 (0.0-0.8) 09/13/18 07:38 Eos # 0.0 K/mm3 (0.0-0.4) 09/13/18 07:38 Baso # 0.0 K/mm3 (0.0-0.1) 09/13/18 07:38 Add Manual Diff Complete 09/10/18 21:09 Total Counted 100 09/10/18 21:09 Seg Neutrophils % 64.6 % (40.0-70.0) 09/13/18 07:38 Seg Neuts % (Manual) 89.0 % (40.0-70.0) H 09/10/18 21:09 0 % 09/10/18 21:09 6.0 % (13.4-35.0) L 09/10/18 21:09 Reactive Lymphs % (Man) 0 % 09/10/18 21:09 5.0 % (0.0-7.3) 09/10/18 21:09 0 % (0.0-4.3) 09/10/18 21:09 0 % (0.0-1.8) 09/10/18 21:09 0 % 09/10/18 21:09 0 % 09/10/18 21:09 0 % 09/10/18 21:09 0 % 09/10/18 21:09 Nucleated RBC % Not Reportable 09/10/18 21:09 Seg Neutrophils # 3.6 K/mm3 (1.8-7.7) 09/13/18 07:38 Seg Neutrophils # Man 8.8 K/mm3 (1.8-7.7) H 09/10/18 21:09 Band Neutrophils # 0.0 K/mm3 09/10/18 21:09 0.6 K/mm3 (1.2-5.4) L 09/10/18 21:09 Abs React Lymphs (Man) 0.0 K/mm3 09/10/18 21:09 0.5 K/mm3 (0.0-0.8) 09/10/18 21:09 0.0 K/mm3 (0.0-0.4) 09/10/18 21:09 0.0 K/mm3 (0.0-0.1) 09/10/18 21:09 0.0 K/mm3 09/10/18 21:09 0.0 K/mm3 09/10/18 21:09 0.0 K/mm3 09/10/18 21:09 Blast Cells # 0.0 K/mm3 09/10/18 21:09 WBC Morphology Not Reportable 09/10/18 21:09 Hypersegmented Neuts Not Reportable 09/10/18 21:09 Hyposegmented Neuts Not Reportable 09/10/18 21:09 Hypogranular Neuts Not Reportable 09/10/18 21:09 Not Reportable 09/10/18 21:09 Not Reportable 09/10/18 21:09 Not Reportable 09/10/18 21:09 Not Reportable 09/10/18 21:09 Not Reportable 09/10/18 21:09 Not Reportable 09/10/18 21:09 Appears normal 09/10/18 21:09 Not Reportable 09/10/18 21:09 Plt Clumps, EDTA Not Reportable 09/10/18 21:09 Not Reportable 09/10/18 21:09 Not Reportable 09/10/18 21:09 Not Reportable 09/10/18 21:09 Plt Morphology Comment Not Reportable 09/10/18 21:09 RBC Morphology Not Reportable 09/10/18 21:09 Dimorphic RBCs Not Reportable 09/10/18 21:09 Not Reportable 09/10/18 21:09 Not Reportable 09/10/18 21:09 Few 09/10/18 21:09 Few 09/10/18 21:09 Not Reportable 09/10/18 21:09 Not Reportable 09/10/18 21:09 Not Reportable 09/10/18 21:09 Not Reportable 09/10/18 21:09 Not Reportable 09/10/18 21:09 Few 09/10/18 21:09 Not Reportable 09/10/18 21:09 Not Reportable 09/10/18 21:09 Not Reportable 09/10/18 21:09 Not Reportable 09/10/18 21:09 Not Reportable 09/10/18 21:09 Not Reportable 09/10/18 21:09 Not Reportable 09/10/18 21:09 Not Reportable 09/10/18 21:09 Few 09/10/18 21:09 Acanthocytes (Spur) Not Reportable 09/10/18 21:09 Rouleaux Not Reportable 09/10/18 21:09 Not Reportable 09/10/18 21:09 Not Reportable 09/10/18 21:09 Not Reportable 09/10/18 21:09 Not Reportable 09/10/18 21:09 Hem Pathologist Commnt No 09/10/18 21:09 PT 12.5 Sec. (12.2-14.9) 09/12/18 15:37 INR 0.96 (0.87-1.13) 09/12/18 15:37 APTT 24.3 Sec. (24.2-36.6) 09/10/18 21:09 296.99 ng/mlDDU (0-234) H 09/10/18 23:03 Sodium 137 mmol/L (137-145) 09/11/18 05:20 Potassium 4.0 mmol/L (3.6-5.0) 09/11/18 05:20 Chloride 101.6 mmol/L (98-107) 09/11/18 05:20 Carbon Dioxide 22 mmol/L (22-30) 09/11/18 05:20 17 mmol/L 09/11/18 05:20 BUN 9 mg/dL (7-17) 09/11/18 05:20 0.6 mg/dL (0.7-1.2) L 09/11/18 05:20 Estimated GFR > 60 ml/min 09/11/18 05:20 15 % 09/11/18 05:20 Glucose 94 mg/dL (65-100) 09/11/18 05:20 POC Glucose 101 (70-105) 09/12/18 16:06 Calcium 8.6 mg/dL (8.4-10.2) 09/11/18 05:20 Magnesium 2.00 mg/dL (1.7-2.3) 09/11/18 05:20 34 units/L (30-135) 09/10/18 21:09 CK-MB (CK-2) < 1.0 ng/mL (0.0-4.0) 09/10/18 21:09 CK-MB (CK-2) Rel Index 2.9 (0-4) 09/10/18 21:09 < 0.010 ng/mL (0.00-0.029) 09/11/18 05:20 NT-Pro-B Natriuret Pep 289.7 pg/mL (0-900) 09/10/18 21:09 Triglycerides 92 mg/dL (2-149) 09/11/18 05:20 Cholesterol 141 mg/dL (50-199) 09/11/18 05:20 93 mg/dL (50-130) 09/11/18 05:20 42 mg/dL (40-59) 09/11/18 05:20 3.35 % 09/11/18 05:20 TSH 0.387 mlU/mL (0.270-4.200) 09/11/18 05:20 Free T4 1.38 ng/dL (0.76-1.46) 09/11/18 05:20 Active Medications - Current Medications Current Medications: Generic Name Dose Route Start Last Admin Trade Name Freq PRN Reason Stop Dose Admin Acetaminophen 650 mg 09/10/18 22:25 Tylenol PO Q4H PRN Pain MILD(1-3)/Fever >100.5/COSTA Amlodipine Besylate 5 mg 09/12/18 11:00 09/12/18 12:05 Norvasc PO 5 mg QDAY VALERIE Administration Aspirin 81 mg 09/11/18 10:00 09/12/18 10:06 Baby Aspirin PO 81 mg QDAY VALERIE Administration Famotidine 10 mg 09/10/18 23:00 09/12/18 22:10 Pepcid PO 10 mg BID VALERIE Administration Guaifenesin 10 ml 09/10/18 23:33 Guaifenesin Dm Syrup PO Q4H PRN Cough Heparin Sodium (Porcine) 5,000 unit 09/11/18 10:00 09/12/18 22:10 Heparin SUB-Q 5,000 unit Q12HR VALERIE Administration Sodium Chloride 1,000 mls @ 100 mls/hr 09/10/18 23:00 09/12/18 08:57 Nacl 0.9% 1000 Ml IV 100 mls/hr DIRECT VALERIE Administration Melatonin 5 mg 09/11/18 21:54 09/11/18 22:14 Melatonin PO 5 mg QHS PRN Administration Sleep Morphine Sulfate 2 mg 09/10/18 22:25 09/12/18 18:17 Morphine IV 2 mg Q4H PRN Administration Pain , Severe (7-10) Ondansetron HCl 4 mg 09/10/18 22:25 Zofran IV Q8H PRN Nausea And Vomiting Oxycodone/Acetaminophen 1 tab 09/10/18 22:25 Percocet 5/325 PO Q6H PRN Pain, Moderate (4-6) Sodium Chloride 10 ml 09/11/18 10:00 09/12/18 22:11 Sodium Chloride Flush Syringe 10 Ml IV 10 ml BID VALERIE Administration Sodium Chloride 10 ml 09/10/18 22:25 Sodium Chloride Flush Syringe 10 Ml IV PRN PRN LINE FLUSH
[2018-09-13 08:42] LABS: Alanine Aminotransferase 10 units/L (7-56); Albumin 3.7 g/dL (3.9-5); BUN/Creatinine Ratio 13; Blood Urea Nitrogen 9 mg/dL (7-17); Calcium 8.5 mg/dL (8.4-10.2); Hemolysis Index 21
[2018-09-13] MEDS ORDERED: NACL 0.9% 500 ML 500 ML ONE (10:24)
[2018-09-13] MEDS ORDERED: SUBLIMAZE ONE (10:30)
[2018-09-13] MEDS ORDERED: VERSED ONE (10:30)
[2018-09-13] MEDS ORDERED: XYLOCAINE 2% INFILTRATI ONE (10:30)
[2018-09-13] MEDS ORDERED: HEPARIN 10,000 UNITS/10 ML ONE (10:30)
[2018-09-13] MEDS ORDERED: HEPARIN/NS 5000 UNIT/500ML(CATH LAB) 1,000 ML IR ONE (10:30)
[2018-09-13] MEDS ORDERED: NITROGLYCERIN SYRINGE 0 ML ONE (10:31)
[2018-09-13] MEDS ORDERED: BABY ASPIRIN ONE (10:36)
[2018-09-13] MEDS: BABY ASPIRIN PO SCH (10:40)
[2018-09-13] MEDS: HEPARIN SUB-Q SCH (11:33)
[2018-09-13] MEDS: PEPCID PO SCH (13:42)
[2018-09-13] MEDS: NORVASC PO SCH (13:43)
[2018-09-13] MEDS: SODIUM CHLORIDE FLUSH SYRINGE 10 ML IV SCH (13:43)
--- NOTE | 2018-09-13 14:16 | Cardiac Catherization Report ---
CORONARY INTRAVASCULAR ULTRASOUND REPORT REASON FOR STUDY: The patient is a 73-year-old woman admitted with chest pain. Noninvasive evaluation demonstrated a dilated ascending aorta with an aneurysm measuring 4.9 cm. She also had evidence of penetrating aortic ulcers. She is planned for CT surgical evaluation of aortic aneurysm. A cardiac catheterization was requested for coronary angiography in anticipation of possible CT surgery for the aortic aneurysm. PROCEDURES: 1. Left heart catheterization. 2. Selective left and right coronary angiography. 3. Left ventricle angiography. 4. Ascending aortic angiography. 5. Intravascular ultrasound assessment of the left main coronary artery. 6. Sedation time, start 1153 and 1221. DETAILS: The patient was prepped and draped in a sterile fashion after informed consent. Right femoral artery was entered using Seldinger technique followed by placement of a 6-Czech sheath. Selective left and right coronary angiography was performed using #4 left and right Ted catheters. A pigtail catheter was used for left ventricle angiography. The pigtail catheter was also used for ascending aortic angiography after a pullback across the aortic valve. FINDINGS: HEMODYNAMICS: Left ventricular end-diastolic pressure was 11. Ascending aortic pressure was 121/64. There was no significant pressure gradient on pullback across the aortic valve. CORONARY ANGIOGRAPHY: There was a hazy, calcified 30-40% stenosis of the distal left main. Following that there was diffuse mild atherosclerosis of the proximal LAD. The mid LAD was notable for an eccentric, 75% stenosis. A medium size ramus intermedius artery contained mild irregularities. The circumflex artery and its obtuse marginal branches contained diffuse mild atherosclerosis. The right coronary artery was dominant. This vessel contained a 30% ostial narrowing, followed by diffuse mild to moderate atherosclerosis of its mid segment. The distal AV groove right coronary artery was notable for a greater than 95% stenosis at the origin of the posterior descending branch. Left ventricular systolic function was at lower limits of normal, ejection fraction 50-55%. Ascending aortic angiography revealed a dilated ascending aorta, with evidence of significant atherosclerosis of the aortic arch. There was trace to no significant aortic regurgitation. INTRAVASCULAR ULTRASOUND: We performed ad hoc intravascular ultrasound assessment of the distal left main coronary disease. A #4.5 EBU guiding catheter was selected and advanced to the left coronary ostium. A 0.014 inch Senior C Developer 50 guidewire was directed into the LAD. Intravascular ultrasound catheter was then inserted and used to interrogate the distal left main and proximal LAD. IVUS of the distal left main showed a significant eccentric plaque, with minimum lumen diameter of 2.9 mm, and a lumen area of stenosis of 59%. IVUS interrogation of the ostium of the LAD also showed severe eccentric plaque stenosis. The minimum lumen of the LAD ostium was 2.2 mm, with a 64% lumen area stenosis. CONCLUSION: 1. Multivessel coronary artery disease with severe disease of the distal left main, LAD ostium and mid LAD as assessed by IVUS interrogation and angiography. 2. Critical disease of the distal right coronary artery at the origin of the posterior descending branch as assessed angiographically. 3. Dilated ascending aorta. 4. Well preserved left ventricular systolic function, ejection fraction 50-55%. RECOMMENDATION: The patient will be referred to CT Surgery for further assessment, will need a coronary bypass at the time of anticipated repair of the aortic aneurysm. [facility]# [id number] JOSÉ MIGUEL/EVARISTO
--- NOTE | 2018-09-13 14:33 | Event Note ---
Date: 09/13/18 Cardiac catheterization was completed, via the right femoral artery. Following cardiac catheterization and left ventricular angiography, with performed a descending aortic angiography, and intravascular ultrasound assessment of the left main coronary artery. No complications. Findings: 1. Multivessel coronary artery disease, with intravascular ultrasound of the distal left main showed a significant stenosis. There was a minimum lumen diameter of 2.9 mm, and the 59% area stenosis of the left main. Also signi ficant was a minimum lumen diameter of the LAD ostium of 2.2 mm, and an area of stenosis of 64%. Additionally, there was a 75-80% angiographic stenosis of the proximal to mid LAD. 2. The right coronary artery contained a distal bifurcation stenosis of greater than 95% at the origin of posterior descending branch. 3. Left ventricular systolic function was well preserved, ejection fraction 50- 55%. 4. Ascending aortic angiography confirmed a dilated ascending aorta, with atherosclerotic plaque noted around the aortic arch. No significant aortic regurgitation. Recommendations: The patient will be recommended for CT surgery evaluation of aneurysm of the descending aorta and multivessel coronary artery disease.
--- NOTE | 2018-09-13 17:19 | Discharge Summary ---
Providers - Providers Date of Admission: 09/13/18 09:47 Date of discharge: 09/13/18 Attending physician: TAHMINA MOREL 09/12/18 09:51 Consult to Physician [CONS] Routine Comment: Consulting Provider: CRICKET SIEGEL Physician Instructions: Reason For Exam: Ascending aortic aneurysm 4.9cm Primary care physician: MER NOLAN Hospitalization Reason for admission: Left-sided chest pain 1 day duration Condition: Critical Pertinent studies: CT angiogram of the chest : Ascending aortic aneurysm 4.9 cm No dissection, tortuous aorta, neg PE Stress test; no myocardial ischemia, LVEF 50% Luiz LE Venous Doppler; negative DVT Procedures: Cardiac catheterization: via the right femoral artery. Following cardiac catheterization and left ventricular angiography, with performed a descending aortic angiography, and intravascular ultrasound assessment of the left main coronary artery. No complications. Findings: 1. Multivessel coronary artery disease, with intravascular ultrasound of the distal left main showed a significant stenosis. There was a minimum lumen d iameter of 2.9 mm, and the 59% area stenosis of the left main. Also significant was a minimum lumen diameter of the LAD ostium of 2.2 mm, and an area of stenosis of 64%. Additionally, there was a 75-80% angiographic stenosis of the proximal to mid LAD. 2. The right coronary artery contained a distal bifurcation stenosis of greater than 95% at the origin of posterior descending branch. 3. Left ventricular systolic function was well preserved, ejection fraction 50- 55%. 4. Ascending aortic angiography confirmed a dilated ascending aorta, with atherosclerotic plaque noted around the aortic arch. No significant aortic regurgitation. Recommendations: The patient will be recommended for CT surgery evaluation of aneurysm of the descending aorta and multivessel coronary artery disease. Hospital course: 73-year-old female with no known past medical history was admitted through emergency room with left-sided chest pain , patient was symptomatically managed subsequently underwent stress test which was negative for ischemia and normal LVEF. Patient had elevated d-dimer's, CTA chest obtained to r/o PE. Negative for PE however revealed Ascending aortic aneurysm 4.9 cm tortuous aorta. Insurance Follow Up Rep Dr. Siegel evaluated in consultation, discussed with cardiothoracic surgeon [place] Dr.Fred Liao Patient underwent heart catheterization today the findings as mentioned above Cardiology recommended transfer the patient to [facility], [place] under the care of CT surgeon for further evaluation and management of ascending aortic aneurysm and multivessel coronary artery disease. Patient is hemodynamically stable at discharge with guarded prognosis. Patient's condition,results of the procedures, recommendations by cardiology, plans of transferring to [facility], [place] To be evaluated by CT surgeon and possible surgical procedures discussed with the patient and the family members Through a bilingual[ Occitan speaking] family member. They verbalized understanding. Final diagnosis; and management --Ascending aortic aneurysm: 4.9 cm ,No dissection, tortuous aorta Insurance Follow Up Rep , evaluated , and discussed with CT surgeon [place] s/p cardiac catheterization today, findings as mentioned above Recommended transfer to [facility], [place],CT surgeon --Multivessel coronary artery disease: CT surgeon evaluation and management at [place] --Chest pain: Present on admission Stress test negative for myocardial ischemia, normal EF --GERD: pepcid --Elevated d-dimer's; s/p CTA chest ,Neg PE. ascending aortic aneurysm lower extremity venous Doppler negative for DVT --Sinus bradycardia at the time of admission; Patient's heart rate ranges in 50s and 60s, no symptoms thyroid function tests normal range,No beta blockers --Mild Metabolic acidosis --Malnutrition:supportive care,nutrition supplements Patient is being transferred to [facility], [place]. Disposition: [id number] ANOTHER TYPE [facility] Time spent for discharge: 35 min Core Measure Documentation - Palliative Care Palliative Care/ Comfort Measures: Not Applicable - Core Measures Any of the following diagnoses?: none Exam - Constitutional Vitals: Temp Pulse Resp BP Pulse Ox 97.8 F 61 16 152/90 100 09/13/18 16:46 09/13/18 16:46 09/13/18 16:46 09/13/18 16:46 09/13/18 16:46 General appearance: Present: no acute distress, cachectic, disheveled, other (minimal communication , language barrier) - EENT Eyes: Present: PERRL, EOM intact - Neck Neck: Present: supple, normal ROM - Respiratory Respiratory effort: normal Respiratory: bilateral: diminished, negative: rales, rhonchi, wheezing - Cardiovascular Rhythm: regular Heart Sounds: Present: S1 & S2 - Extremities Extremities: no ischemia, No edema - Abdominal General gastrointestinal: Present: soft, non-tender, non-distended, normal bowel sounds - Integumentary Integumentary: Present: clear, warm - Musculoskeletal Musculoskeletal: generalized weakness - Psychiatric Psychiatric: appropriate mood/affect, cooperative - Neurologic Neurologic: moves all extremities Plan Activity: other (bedrest) Diet: other (NPO) Additional Instructions: Patient is being transferred to [facility], [place] under the care of. CT surgeon Dr.Fred Liao for further evaluation and management of ascending aortic aneurysm and multivessel CAD, Follow up with: MER NOLAN MD [Primary Care Provider] - 7 Days CRICKET SIEGEL MD [Staff Physician] - 7 Days
[2018-09-13 18:51] VITALS: BP 139/90
== END 2018-09-13 20:13 | disposition short-term general hospital (02) | DRG 287 ==
LOC: ED 20:38 → 4A 22:25 → OBSVTOIN 09-13 09:47
PROVIDERS: ADMIT Internal Medicine; ATTEND Internal Medicine
PROC: 4A023N7 Measurement of Cardiac Sampling and Pressure, Left Heart, Percutaneous Approach (ICD-10-PCS; principal; 2018-09-13)
PROC: B2111ZZ Fluoroscopy of Multiple Coronary Arteries using Low Osmolar Contrast (ICD-10-PCS; 2018-09-13)
PROC: B2151ZZ Fluoroscopy of Left Heart using Low Osmolar Contrast (ICD-10-PCS; 2018-09-13)
PROC: B3101ZZ Fluoroscopy of Thoracic Aorta using Low Osmolar Contrast (ICD-10-PCS; 2018-09-13)
PROC: B240ZZ3 Ultrasonography of Single Coronary Artery, Intravascular (ICD-10-PCS; 2018-09-13)
DX: R07.9 Chest pain, unspecified (principal); E87.2 Acidosis; E46 Unspecified protein-calorie malnutrition; Z68.1 Body mass index [BMI] 19.9 or less, adult; I71.2 Thoracic aortic aneurysm, without rupture; I25.10 Atherosclerotic heart disease of native coronary artery without angina pectoris; R00.1 Bradycardia, unspecified; K21.9 Gastro-esophageal reflux disease without esophagitis
CPT/HCPCS: 36415; 71045; 71275; 78452; 80048; 80053; 80061; 82550; 82553; 82962; 83735; 83880; 84439; 84443; 84484; 85007; 85025; 85347; 85379; 85610; 85730; 92978; 93005; 93010; 93017; 93458; 93970; G0378; A9502; C1753; C1769; C1887; C1894; J1644; J2250; J2270; J2785; J3010; J7030; J7040; Q9967

== ENCOUNTER 2018-12-06 04:15 | Emergency (ER) | payer MEDICARE ==
[2018-12-06] MEDS ORDERED: DOPamine/D5W 800 MG/250 ML 0 MG/0 ML BAG IV ONE (04:38)
[2018-12-06 05:28] LABS: Hematocrit 31.7 % (30.3-42.9); Hemoglobin 9.9 gm/dl (10.1-14.3); Mean Corpuscular HGB Conc 31 % (30-34); Mean Corpuscular Volume 77 fl (79-97); Platelet Count 250 K/mm3 (140-440); Red Blood Count 4.09 M/mm3 (3.65-5.03); Red Cell Distribution Width 18.6 % (13.2-15.2)
[2018-12-06 05:37] LABS: INR 1.39 (0.87-1.13)
[2018-12-06 05:40] LABS: Partial Thromboplastin Time 62.7 Sec. (24.2-36.6)
[2018-12-06] MEDS ORDERED: CEFEPIME/NS 1 GM/100 ML 1 GM/100 ML BAG IV ONE (05:42)
[2018-12-06 05:47] LABS: Alanine Aminotransferase 48 units/L (7-56); BUN/Creatinine Ratio 7; Blood Urea Nitrogen 6 mg/dL (7-17); Calcium 7.7 mg/dL (8.4-10.2); Hemolysis Index 24
[2018-12-06] MEDS ORDERED: SODIUM CHLORIDE 0.9% 1000 ML IV SOLN IV ONE (06:03)
--- NOTE | 2018-12-06 06:11 | Emergency Department Report ---
<HORTENCIA WHYTE - Last Filed: 12/06/18 09:58> ED CPR HPI - General Chief Complaint: Cardiac Arrest/CPR Stated Complaint: CARDIAC ARREST Time Seen by Provider: 12/06/18 04:43 - Related Data Previous Rx's Medication Instructions Recorded Last Taken Type Acetaminophen [Acetaminophen TAB] 650 mg PO Q4H PRN tablet 09/13/18 Unknown Rx Aspirin [Aspirin BABY CHEW TAB] 81 mg PO QDAY tab.chew 09/13/18 Unknown Rx Famotidine [Pepcid] 10 mg PO BID tablet 09/13/18 Unknown Rx Melatonin [Melatonin 5MG TAB] 5 mg PO QHS PRN tablet 09/13/18 Unknown Rx amLODIPine [Norvasc] 5 mg PO QDAY tablet 09/13/18 Unknown Rx guaiFENesin DM [Guaifenesin Dm 10 ml PO Q4H PRN oral.liqd 09/13/18 Unknown Rx Syrup] oxyCODONE /ACETAMINOPHEN [Percocet 1 tab PO Q6H PRN tablet 09/13/18 Unknown Rx 5/325 mg] Allergies Allergy/AdvReac Type Severity Reaction Status Date / Time No Known Allergies Allergy Unverified 01/17/13 17:48 ED Past Medical Hx - Medications Home Medications: Home Medications Medication Instructions Recorded Confirmed Last Taken Type Acetaminophen [Acetaminophen TAB] 650 mg PO Q4H PRN tablet 09/13/18 Unknown Rx Aspirin [Aspirin BABY CHEW TAB] 81 mg PO QDAY tab.chew 09/13/18 Unknown Rx Famotidine [Pepcid] 10 mg PO BID tablet 09/13/18 Unknown Rx Melatonin [Melatonin 5MG TAB] 5 mg PO QHS PRN tablet 09/13/18 Unknown Rx amLODIPine [Norvasc] 5 mg PO QDAY tablet 09/13/18 Unknown Rx guaiFENesin DM [Guaifenesin Dm 10 ml PO Q4H PRN oral.liqd 09/13/18 Unknown Rx Syrup] oxyCODONE /ACETAMINOPHEN [Percocet 1 tab PO Q6H PRN tablet 09/13/18 Unknown Rx 5/325 mg] ED Medical Decision Making - Lab Data Result diagrams: 12/06/18 05:01 12/06/18 05:01 - Radiology Data Radiology results: report reviewed Referring Physician: JAY MONCADA Patient Name: CALLIE LEDESMA Date of : 1945 Sex: Female Report Date: 2018-12-06 Report Status: Finalized Findings [facility] [address] [id number] Cat Scan Report Signed Patient: CALLIE LEDESMA MR#: [id number] : 1945 Acct:[id number] Age/Sex: 73 / F ADM Date: 12/06/18 Loc: ED Attending Dr: Ordering Physician: JAY MONCADA MD Date of Service: 12/06/18 Procedure(s): CT angio chest Accession Number(s): [id number] cc: JAY MONCADA MD CTA CHEST, ABDOMEN, AND PELVIS WITHOUT AND WITH CONTRAST INDICATION / CLINICAL INFORMATION: cardiac arrest, hx aortic aneurysm. TECHNIQUE: Axial CT images were obtained through the chest, abdomen, and pelvis before and after injection of 100 mL Omnipaque 350 IV contrast. 3 plane MIP and/or 3D reconstructions were produced. All CT scans at this location are performed using CT dose reduction for ALARA by means of automated exposure control. COMPARISON: CTA chest 09/11/2018 FINDINGS: LINES/TUBES: Endotracheal tube with tip terminating in the proximal right mainstem bronchus. Left femoral central venous catheter in place with tip terminating in the region of the left external iliac vein. Heart: The heart is not enlarged. No pericardial effusion. Small coronary artery calcifications are noted. Thoracic Aorta: Interval median sternotomy and postsurgical change in the mediastinum likely related to repair of the ascending thoracic aorta. The proximal to mid ascending thoracic aorta now measures up to 3.2 cm in diameter. Strandy changes seen in the mediastinum surrounding the ascending thoracic aorta which may represent mediastinal blood products or could be postsurgical in nature. A small amount of hyperattenuating content is seen along the posterior medial aspect of the mid ascending thoracic aorta between the ascending aorta and pulmonary artery (series 3, image 56). This is incompletely evaluated on single phase examination that could represent extravasation versus surgical material. There is mild ectasia of the superior ascending thoracic aorta and proximal arch measuring up to 3.7 cm in diameter. There is no evidence of aortic dissection. Atherosclerotic calcification of the aortic arch and descending thoracic aorta. The aortic arch measures up to 3.1 cm in diameter, and the descending thoracic aorta measures up to 2.1 cm in diameter. Great Vessels: No significant abnormality. Pulmonary Arteries: No pulmonary emboli identified. The main pulmonary artery is nondilated. Additional Chest Findings: Several prominent but not technically enlarged mediastinal lymph nodes, nonspecific and likely reactive. Interval development of extensive consolidative and groundglass opacities throughout the left lung, and scattered patchy nodular and consolidative opacities in the right lung, particularly in the posterior right upper lobe and in the right middle lobe. Superimposed septal thickening is noted. Abdominal Aorta: Moderate atherosclerotic calcification. No evidence of abdominal aortic aneurysm or dissection. The proximal abdominal aorta measures up to 1.8 cm, the mid abdominal aorta measures up to 1.3 cm, and the infrarenal abdominal aorta measures up to 1.8 cm. Renal arteries: No significant abnormality. Celiac artery: No significant abnormality. Superior Mesenteric Artery: Mild atherosclerotic calcification without significant stenosis. Inferior mesenteric artery: No significant abnormality. Right Iliac Arteries: Moderate to large atherosclerotic calcification without significant stenosis.. Left Iliac Arteries: Moderate to large atherosclerotic calcification resulting in mild narrowing of the proximal common iliac artery.. Additional Abdominopelvic Findings: The liver, gallbladder, spleen, pancreas, adrenal glands, and right kidney are unremarkable. Simple renal cyst in the left upper pole. The bladder is collapsed with a King catheter in place. The uterus and adnexa are grossly unremarkable. The bowel is unremarkable. Skeletal Structures: No significant abnormality. IMPRESSION: 1. Interval median sternotomy and postsurgical change in the mediastinum which may be related to repair of previously seen ascending thoracic aortic aneurysm. Hyperattenuating content along the posterior medial aspect of the aorta is incompletely characterized on single phase examination but may represent active extravasation of contrast versus surgical material. Additionally, strandy change in the mediastinum may represent blood products versus postsurgical change. A noncontrast CT of the chest may be helpful to further evaluate. 2. Endotracheal tube with tip terminating in the proximal right mainstem bronchus, recommend slight retraction. 3. Interval development of extensive groundglass and consolidative opacity throughout the left lung, and to a lesser extent in the right lung. Differential considerations include aspiration, multifocal pneumonia, with possibility of superimposed asymmetric edema. The above findings were discussed with Dr. José Antonio Whyte in the emergency department at 8:29 AM central time on 12/06/2018. Signer Name: Agustina Beyer MD Signed: 12/06/2018 9:36 AM Workstation Name: [id number] Transcribed By: [facility] Dictated By: Agustina Beyer MD Electronically Authenticated By: Agustina Beyer MD Signed Date/Time: 12/06/18 0936 Referring Physician: JAY MONCADA Patient Name: CALLIE LEDESMA Date of : 1945 Sex: Female Report Date: 2018-12-06 Report Status: Finalized Findings [facility] [address] [id number] Cat Scan Report Signed Patient: CALLIE LEDESMA MR#: [id number] : 1945 Acct:[id number] Age/Sex: 73 / F ADM Date: 12/06/18 Loc: ED Attending Dr: Ordering Physician: JAY MONCADA MD Date of Service: 12/06/18 Procedure(s): CT angio abdomen pelvis Accession Number(s): [id number] cc: JAY MONCADA MD CTA CHEST, ABDOMEN, AND PELVIS WITHOUT AND WITH CONTRAST INDICATION / CLINICAL INFORMATION: cardiac arrest, hx aortic aneurysm. TECHNIQUE: Axial CT images were obtained through the chest, abdomen, and pelvis before and after injection of 100 mL Omnipaque 350 IV contrast. 3 plane MIP and/or 3D reconstructions were produced. All CT scans at this location are performed using CT dose reduction for ALARA by means of automated exposure control. COMPARISON: CTA chest 09/11/2018 FINDINGS: LINES/TUBES: Endotracheal tube with tip terminating in the proximal right mainstem bronchus. Left femoral central venous catheter in place with tip terminating in the region of the left external iliac vein. Heart: The heart is not enlarged. No pericardial effusion. Small coronary artery calcifications are noted. Thoracic Aorta: Interval median sternotomy and postsurgical change in the mediastinum likely related to repair of the ascending thoracic aorta. The proximal to mid ascending thoracic aorta now measures up to 3.2 cm in diameter. Strandy changes seen in the mediastinum surrounding the ascending thoracic aorta which may represent mediastinal blood products or could be postsurgical in nature. A small amount of hyperattenuating content is seen along the posterior medial aspect of the mid ascending thoracic aorta between the ascending aorta and pulmonary artery (series 3, image 56). This is incompletely evaluated on single phase examination that could represent extravasation versus surgical material. There is mild ectasia of the superior ascending thoracic aorta and proximal arch measuring up to 3.7 cm in diameter. There is no evidence of aortic dissection. Atherosclerotic calcification of the aortic arch and descending thoracic aorta. The aortic arch measures up to 3.1 cm in diameter, and the descending thoracic aorta measures up to 2.1 cm in diameter. Great Vessels: No significant abnormality. Pulmonary Arteries: No pulmonary emboli identified. The main pulmonary artery is nondilated. Additional Chest Findings: Several prominent but not technically enlarged mediastinal lymph nodes, nonspecific and likely reactive. Interval development of extensive consolidative and groundglass opacities throughout the left lung, and scattered patchy nodular and consolidative opacities in the right lung, particularly in the posterior right upper lobe and in the right middle lobe. Superimposed septal thickening is noted. Abdominal Aorta: Moderate atherosclerotic calcification. No evidence of abdominal aortic aneurysm or dissection. The proximal abdominal aorta measures up to 1.8 cm, the mid abdominal aorta measures up to 1.3 cm, and the infrarenal abdominal aorta measures up to 1.8 cm. Renal arteries: No significant abnormality. Celiac artery: No significant abnormality. Superior Mesenteric Artery: Mild atherosclerotic calcification without significant stenosis. Inferior mesenteric artery: No significant abnormality. Right Iliac Arteries: Moderate to large atherosclerotic calcification without significant stenosis.. Left Iliac Arteries: Moderate to large atherosclerotic calcification resulting in mild narrowing of the proximal common iliac artery.. Additional Abdominopelvic Findings: The liver, gallbladder, spleen, pancreas, adrenal glands, and right kidney are unremarkable. Simple renal cyst in the left upper pole. The bladder is collapsed with a King catheter in place. The uterus and adnexa are grossly unremarkable. The bowel is unremarkable. Skeletal Structures: No significant abnormality. IMPRESSION: 1. Interval median sternotomy and postsurgical change in the mediastinum which may be related to repair of previously seen ascending thoracic aortic aneurysm. Hyperattenuating content along the posterior medial aspect of the aorta is incompletely characterized on single phase examination but may represent active extravasation of contrast versus surgical material. Additionally, strandy change in the mediastinum may represent blood products versus postsurgical change. A noncontrast CT of the chest may be helpful to further evaluate. 2. Endotracheal tube with tip terminating in the proximal right mainstem bronchus, recommend slight retraction. 3. Interval development of extensive groundglass and consolidative opacity throughout the left lung, and to a lesser extent in the right lung. Differential considerations include aspiration, multifocal pneumonia, with possibility of superimposed asymmetric edema. The above findings were discussed with Dr. José Antonio Whyte in the emergency department at 8:29 AM central time on 12/06/2018. Signer Name: Agustina Beyer MD Signed: 12/06/2018 9:36 AM Workstation Name: [id number] Transcribed By: C Dictated By: Agustina Beyer MD Electronically Authenticated By: Agustina Beyer MD Signed Date/Time: 12/06/18935 DD/ 4 TD/TT: DD/ 4 TD/TT: - Medical Decision Making Ms Ledesma is 73 yo Female signed out to me by my colleague Dr Moncada. Patient presents to ED in cardiac arrest. Pt found down by family laying on floor. [id number]-[id number] reports she did bystander CPR while on the phone with 911 until EMS arrived. EMS reports pt was pulseless and apneic, in Vfib. Pt was defibrillated twice, amiodarone given. Pt received epi x 4 prior to ED arrival. States regained pulses as they pulled up in the ambulance bay. Pt has hx multivessel CAD, ascending aortic aneurysm, diagnosed here in August 2018. At that time, pt was transferred from here to [facility] for coronary bypass surgery. Son states pt did not undergo aortic aneurysm repair. Patient evaluated by me multiple times. Patient remained stable on ventilation with dopamine and fluids infusing. CTA chest showed a possible extravasation of contrast was C-reactive the ascending aorta with a possibility of aneurysmal leak. Please refer to CTA test report for further details. I discussed the p atient with Dr. Jus KOTHARI Mr Crawford. Mr. Crawford checked patient record and stated that patient did have a aortic repair while she was getting her CABG. Mr Crawford septae the patient on behalf of Dr. Luu. An extra 30 minutes critical time spent on this patient. Critical Care Time: Yes Critical care time in (mins) excluding proc time.: 60 ED Disposition Clinical Impression: Cardiac arrest, Hypokalemia, Sepsis, NSTEMI (non-ST elevated myocardial infarction), Cardiopulmonary arrest, Pneumonia, Ruptured thoracic aortic aneurysm Disposition: DC/TX-70 ANOTHER TYPE HLTHCARE Is pt being admited?: No Condition: Stable Instructions: Bacterial Pneumonia (ED) Referrals: SANIYA PHAM MD [Primary Care Provider] - 3-5 Days <JAY MONCADA - Last Filed: 12/06/18 21:47> ED CPR HPI - General Source: EMS Mode of arrival: Stretcher Limitations: Other - History of Present Illness Initial Comments: 73 yo F presents to ED in cardiac arrest. Pt found down by family laying on floor. [id number] reports she did bystander CPR while on the phone with 911 until EMS arrived. EMS reports pt was pulseless and apneic, in Vfib. Pt was defibrillated twice, amiodarone given. Pt received epi x 4 prior to ED arrival. States regained pulses as they pulled up in the ambulance bay. Pt has hx multivessel CAD, ascending aortic aneurysm, diagnosed here in August 2018. At that time, pt was transferred from here to [facility] for coronary bypass surgery. Son states pt did not undergo aortic aneurysm repair. Complaint: found unresponsive -: unknown Place: home Bystander CPR Performed: Yes Number of Shocks Delivered: 2 Downtime Before ACLS Arrival (mins): 20 Initial Findings in the Field: unresponsive, no respirations, no pulse, VTACH/VFIB ROSC in the Field: Yes Treatments Prior to Arrival: intubation, defribrillated shocks # (2), epinephrine mgs # (4), amiodarone ED Review of Systems ROS: Stated complaint: CARDIAC ARREST Other details as noted in HPI Comment: Unobtainable due to pts medical conditions ED Past Medical Hx - Past Medical History Previous Medical History?: Yes Hx Congestive Heart Failure: No Additional medical history: Thoracic Aortic Aneurysm 2019 - Surgical History Past Surgical History?: Yes Additional Surgical History: open heart sx 09/2018 - Social History Smoking Status: Never Smoker Substance Use Type: None ED Physical Exam - General Limitations: Other - Head Head exam: Present: atraumatic, normocephalic - Eye Eye exam: Present: normal appearance - ENT ENT exam: Present: other (ET tube in place) - Neck Neck exam: Present: normal inspection - Respiratory Respiratory exam: Present: other (decreased breath sounds in left lung field) - Cardiovascular Cardiovascular Exam: Present: regular rate, normal rhythm - GI/Abdominal GI/Abdominal exam: Present: soft. Absent: distended - Extremities Exam Extremities exam: Present: normal inspection, other (IO present in left lower leg) - Psychiatric Psychiatric exam: Present: normal affect, normal mood - Skin Skin exam: Present: warm, dry, intact, normal color ED Course Vital Signs 12/06/18 12/06/18 12/06/18 04:15 04:42 05:54 Temperature 97 F L Pulse Rate 43 L 97 H 97 H Respiratory 12 Rate Blood Pressure 43/26 94/62 94/62 Blood Pressure 43/26 [Left] O2 Sat by Pulse 94 80 L 86 Oximetry 12/06/18 12/06/18 12/06/18 06:34 06:46 07:18 Temperature Pulse Rate 90 80 97 H Respiratory 24 24 28 H Rate Blood Pressure 107/39 124/68 Blood Pressure [Left] O2 Sat by Pulse Oximetry 12/06/18 12/06/18 12/06/18 07:28 07:33 07:45 Temperature Pulse Rate 87 84 82 Respiratory 24 24 Rate Blood Pressure 125/54 135/70 Blood Pressure [Left] O2 Sat by Pulse 84 Oximetry 12/06/18 12/06/18 12/06/18 08:00 08:16 08:30 Temperature Pulse Rate 83 81 80 Respiratory 24 24 24 Rate Blood Pressure 128/78 128/70 129/70 Blood Pressure [Left] O2 Sat by Pulse Oximetry 12/06/18 12/06/18 12/06/18 08:40 08:46 08:56 Temperature 95.4 F L Pulse Rate 86 94 H Respiratory 20 24 Rate Blood Pressure 125/54 120/77 Blood Pressure 124/57 [Left] O2 Sat by Pulse 84 Oximetry 12/06/18 12/06/18 12/06/18 09:00 09:16 09:30 Temperature Pulse Rate 81 82 88 Respiratory 24 24 21 Rate Blood Pressure 124/81 119/77 132/66 Blood Pressure [Left] O2 Sat by Pulse Oximetry 12/06/18 12/06/18 12/06/18 09:46 10:00 10:16 Temperature Pulse Rate 80 83 74 Respiratory 24 24 24 Rate Blood Pressure 128/91 125/96 119/74 Blood Pressure [Left] O2 Sat by Pulse Oximetry 12/06/18 12/06/18 12/06/18 10:30 10:46 11:00 Temperature Pulse Rate 82 78 79 Respiratory 24 24 24 Rate Blood Pressure 113/64 142/74 116/81 Blood Pressure [Left] O2 Sat by Pulse Oximetry 12/06/18 12/06/18 12/06/18 11:15 11:31 11:50 Temperature Pulse Rate 87 84 Respiratory 24 24 Rate Blood Pressure 126/74 105/60 116/81 Blood Pressure [Left] O2 Sat by Pulse 84 Oximetry - Central Line Placement Left Femoral Consent Obtained: emergent situation Time Out Performed: Yes Patient Placed on Monitor/Pulse Ox: Yes MD Prep: mask, gown, gloves Central Line Prep: Chlorhexidine scrub Ultrasound Used for Placement: No Central Line Lumen Inserted: triple Bloods Obtained for Lab: No Central Line Position: good blood return, all ports aspirated, flus, sutured in place with nyl Dressing Applied: Tegaderm Patient Tolerated Procedure: well Complications: hematoma at puncture site ED Medical Decision Making - Lab Data Result diagrams: 12/06/18 05:01 12/06/18 05:01 - EKG Data -: EKG Interpreted by Ar EKG shows normal: sinus rhythm, axis, QRS complexes, ST-T waves Rate: normal - EKG Data Interpretation: other (prolonged QT) - Radiology Data Radiology results: pending, image reviewed - Medical Decision Making 73 yo F presents to ED in cardiac arrest. Pt down for 20 min prior to EMS arri vivian. In EMS care for approx 25 min. Pt coded briefly here in the ED, Epi and sodium bicarb given. Pt regained pulses, placed on a dopamine drip. Recently underwent CABG 2 mos ago, also hx of ascending aortic aneurysm. Son does not believe that the pt underwent repair of the aneurysm. EKG shows no ST elevations. Troponin elevated at 0.11. Potassium low at 2.8. This is currently being repleted. Lactic acid and WBCs elevated. Cultures drawn, cefepime given, IV fluids given. Vitals are currently stable. CT Head shows no acute findings. CTA Chest, Abd, Pelvis is currently pending. Pt signed out to my colleague Dr Whyte to follow up on CT results. - Differential Diagnosis arrythmia, ruptured aneurysm, ACS, infection Critical Care Time: Yes Critical care time in (mins) excluding proc time.: 35 Critical care attestation.: If time is entered above; I have spent that time in minutes in the direct care of this critically ill patient, excluding procedure time. Critical Care Time: 35 minutes ED Disposition Is pt being admited?: No
[2018-12-06 06:33] LABS: Chol/HDL Ratio 2.77 %; HDL Cholesterol 40 mg/dL (40-59); LDL Cholesterol,Direct 74 mg/dL (50-130)
[2018-12-06 06:41] LABS: Monocytes % (Manual) 0 % (0.0-7.3); Total Cells Counted 100
[2018-12-06 06:42] LABS: Basophils % (Manual) 0 % (0.0-1.8)
[2018-12-06 06:43] LABS: Anisocytosis Few; Platelet Estimate Consistent w Auto
[2018-12-06 07:22] LABS: Bacteria,Urine 1+ /HPF (Negative); Bilirubin,Urine NEG (Negative); Blood,Urine MOD (Negative); Color,Urine Yellow (Yellow); Urobilinogen,Urine < 2.0 mg/dL (<2.0)
--- NOTE | 2018-12-06 07:50 | Cat Scan Report ---
CT HEAD WITHOUT CONTRAST INDICATION: cardiac arrest TECHNIQUE: Axial slices were obtained through the head. Coronal and sagittal reformatted images were obtained. COMPARISON: None available. FINDINGS: There is no intracranial hemorrhage or extra-axial fluid collection. There is encephalomalacia in the posterior aspect of the right frontal lobe characteristic of chronic infarction. There is no mass le bhumi or midline shift. No acute territorial infarct is identified. Bone windows demonstrate no acute osseous abnormality. Paranasal sinuses and mastoid air cells appear clear. TECHNIQUE: All CT scans at this facility use dose modulation, iterative reconstruction, automated ex posure control, weight based dosing, when appropriate, to reduce radiation dose to as low as reasonab ly achievable. IMPRESSION: 1. No acute intracranial abnormality. No intracranial hemorrhage is seen. 2. 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 Signer Name: Seven Johnson MD Signed: 12/06/2018 7:46 AM Workstation Name: [id number]
[2018-12-06] MEDS ORDERED: EPINEPHrine 1:10,000 1 MG/10 ML SYRINGE ONE (07:52)
[2018-12-06] MEDS ORDERED: SODIUM BICARB 8.4% 50 MEQ/50 ML SYRINGE IV ONE (07:52)
[2018-12-06] MEDS: POTASSIUM CHLORIDE 20 MEQ 20 MEQ/100 ML BAG IV SCH ×2 (08:20→09:49)
--- NOTE | 2018-12-06 09:41 | Cat Scan Report ---
CTA CHEST, ABDOMEN, AND PELVIS WITHOUT AND WITH CONTRAST INDICATION / CLINICAL INFORMATION: cardiac arrest, hx aortic aneurysm. TECHNIQUE: Axial CT images were obtained through the chest, abdomen, and pelvis before and after injection of 10 0 mL Omnipaque 350 IV contrast. 3 plane MIP and/or 3D reconstructions were produced. All CT scans at this location are performed using CT dose reduction for ALARA by means of automated exposure control. COMPARISON: CTA chest 09/11/2018 FINDINGS: LINES/TUBES: Endotracheal tube with tip terminating in the proximal right mainstem bronchus. Left fem oral central venous catheter in place with tip terminating in the region of the left external iliac v ein. Heart: The heart is not enlarged. No pericardial effusion. Small coronary artery calcifications are n oted. Thoracic Aorta: Interval median sternotomy and postsurgical change in the mediastinum likely related to repair of the ascending thoracic aorta. The proximal to mid ascending thoracic aorta now measures up to 3.2 cm in diameter. Strandy changes seen in the mediastinum surrounding the ascending thoracic aorta which may represent mediastinal blood products or could be postsurgical in nature. A small amou nt of hyperattenuating content is seen along the posterior medial aspect of the mid ascending thoraci c aorta between the ascending aorta and pulmonary artery (series 3, image 56). This is incompletely e valuated on single phase examination that could represent extravasation versus surgical material. The re is mild ectasia of the superior ascending thoracic aorta and proximal arch measuring up to 3.7 cm in diameter. There is no evidence of aortic dissection. Atherosclerotic calcification of the aortic a rch and descending thoracic aorta. The aortic arch measures up to 3.1 cm in diameter, and the descend ing thoracic aorta measures up to 2.1 cm in diameter. Great Vessels: No significant abnormality. Pulmonary Arteries: No pulmonary emboli identified. The main pulmonary artery is nondilated. Additional Chest Findings: Several prominent but not technically enlarged mediastinal lymph nodes, no nspecific and likely reactive. Interval development of extensive consolidative and groundglass opacit ies throughout the left lung, and scattered patchy nodular and consolidative opacities in the right l jose eduardo, particularly in the posterior right upper lobe and in the right middle lobe. Superimposed septal thickening is noted. Abdominal Aorta: Moderate atherosclerotic calcification. No evidence of abdominal aortic aneurysm or dissection. The proximal abdominal aorta measures up to 1.8 cm, the mid abdominal aorta measures up t o 1.3 cm, and the infrarenal abdominal aorta measures up to 1.8 cm. Renal arteries: No significant abnormality. Celiac artery: No significant abnormality. Superior Mesenteric Artery: Mild atherosclerotic calcification without significant stenosis. Inferior mesenteric artery: No significant abnormality. Right Iliac Arteries: Moderate to large atherosclerotic calcification without significant stenosis.. Left Iliac Arteries: Moderate to large atherosclerotic calcification resulting in mild narrowing of t he proximal common iliac artery.. Additional Abdominopelvic Findings: The liver, gallbladder, spleen, pancreas, adrenal glands, and rig ht kidney are unremarkable. Simple renal cyst in the left upper pole. The bladder is collapsed with a King catheter in place. The uterus and adnexa are grossly unremarkable. The bowel is unremarkable. Skeletal Structures: No significant abnormality. IMPRESSION: 1. Interval median sternotomy and postsurgical change in the mediastinum which may be related to repa ir of previously seen ascending thoracic aortic aneurysm. Hyperattenuating content along the posterio r medial aspect of the aorta is incompletely characterized on single phase examination but may repres ent active extravasation of contrast versus surgical material. Additionally, strandy change in the me diastinum may represent blood products versus postsurgical change. A noncontrast CT of the chest may be helpful to further evaluate. 2. Endotracheal tube with tip terminating in the proximal right mainstem bronchus, recommend slight r etraction. 3. Interval development of extensive groundglass and consolidative opacity throughout the left lung, and to a lesser extent in the right lung. Differential considerations include aspiration, multifocal pneumonia, with possibility of superimposed asymmetric edema. The above findings were discussed with Dr. José Antonio Wolf in the emergency department at 8:29 AM ce ntral time on 12/06/2018. Signer Name: Agustina Beyer MD Signed: 12/06/2018 9:36 AM Workstation Name: [id number]
[2018-12-06 11:03] VITALS: BP 116/81
--- NOTE | 2018-12-06 16:15 | XRay Report ---
CHEST 1 VIEW 12/06/2018 4:52 AM INDICATION: cardiac arrest. COMPARISON: 09/10/2018. FINDINGS: Support devices: An endotracheal tube tip is in the right mainstem bronchus. Heart: Within normal limits. Pulmonary vasculature: Normal. Lungs/Pleura: Left upper lobe and left lower lobe infiltrates. There is partial consolidation with ai r bronchograms. The right lung is clear. Additional findings: None. IMPRESSION: 1. Endotracheal tube tip in the right mainstem bronchus. 2. Left upper lobe and left lower lobe pneumonia. I called the emergency department to report the position of the endotracheal tube on 12/06/2018 at 4:0 0 PM and learned that this patient was seen about 12 hours earlier and had been transferred [facility]. Signer Name: Gregg Urbano MD Signed: 12/06/2018 4:10 PM Workstation Name: [id number]
== END 2018-12-06 11:39 | disposition other institution (70) ==
LOC: ED 04:15
DX: I46.9 Cardiac arrest, cause unspecified (principal); A41.9 Sepsis, unspecified organism; I21.4 Non-ST elevation (NSTEMI) myocardial infarction; J18.9 Pneumonia, unspecified organism; I71.1 Thoracic aortic aneurysm, ruptured; E87.6 Hypokalemia; G93.89 Other specified disorders of brain
CPT/HCPCS: 36415; 36556; 70450; 71045; 71275; 74174; 80053; 80061; 81001; 82140; 82803; 84484; 85007; 85025; 85610; 85730; 87040; 87086; 92950; 93005; 93010; 96365; 96366; 96367; 99291; J0171; J0692; J3480; J7030; Q9967; 94002; J1265